=== PATIENT | female | born 1955 | race Caucasian/White ===

== ENCOUNTER 2021-02-15 13:10 | Emergency (ER) | payer OTHER ==
[~2021-02-15] VITALS: Ht 175.3 cm; Wt 51.8 kg
[2021-02-15 13:50] VITALS: BP 127/50
[2021-02-15 15:36] LABS: BILIRUBIN,URINE NEGATIVE (NEG); CLARITY,URINE CLEAR; COLOR,URINE YELLOW; NITRITE,URINE NEGATIVE (NEG); PH,URINE 6.5 (<5.0-8.0); PROTEIN,URINE NEGATIVE (NEG-TRACE); UROBILINOGEN,URINE 0.2 mg/dL (0.2 mg/dL)
--- NOTE | 2021-02-15 16:02 | PHYS DOC ---
Past Medical History Past Medical History: Other Additional Past Medical Histor: BREAST CANCER (GISELLA CEE PLAYGROUND EQUIPMENT ERECTOR) Past Surgical History: Appendectomy, Cholecystectomy, Other Additional Past Surgical Histo: MASTECTOMY (GISELLA CEE PLAYGROUND [employer]IPMENT E[employer]OR) Smoking Status: Never Smoker Alcohol Use: None (GISELLA CEE APRN) General Adult EDM: Chief Complaint: RIB PAIN HPI: HPI: Patient is a 65 year old female who presents with states around 8 weeks she was stretching and felt a pop in her right rib cage. States ever since then she she has had this constant gnawing pain or like something is stabbing her. Nothing makes it worse but if she lays on that side and makes it better. She denies chest pain, shortness of air, dizziness, headache, numbness or tingling, focal w eakness, vision changes. She denies any other injury. She has a history of breast cancer, appendectomy, mastectomy, cholesectomy. (GISELLA CEE PLAYGROUND EQUIPMENT ERECTOR) Review of Systems: Review of Systems: Constitutional: Denies fever or chills. [] Eyes: Denies change in visual acuity. [] HENT: Denies nasal congestion or sore throat. [] Respiratory: Denies cough or shortness of breath. [] Cardiovascular: Denies chest pain or edema. [] GI: Denies abdominal pain, nausea, vomiting, bloody stools or diarrhea. [] : Denies dysuria. [] Musculoskeletal: Denies back pain or joint pain. + Right rib pain [] Integument: Denies rash. [] Neurologic: Denies headache, focal weakness or sensory changes. [] Endocrine: Denies polyuria or polydipsia. [] Lymphatic: Denies swollen glands. [] Psychiatric: Denies depression or anxiety. [] (GISELLA CEE PLAYGROUND [employer]IPMENT E[employer]OR) Heart Score: C/O Chest Pain: No Risk Factors: Risk Factors: DM, Current or recent (<one month) smoker, HTN, HLP, family history of CAD, obesity. Risk Scores: Score 0 - 3: 2.5% MACE over next 6 weeks - Discharge Home Score 4 - 6: 20.3% MACE over next 6 weeks - Admit for Clinical Observation Score 7 - 10: 72.7% MACE over next 6 weeks - Early Invasive Strategies (GISELLA CEE APRN) Allergies: Allergies: Allergies Coded Allergies Type Severity Reaction Last Updated Verified No Known Drug Allergies 02/15/21 No (GISELLA CEE APRN) Physical Exam: PE: Constitutional: Well developed, well nourished, no acute distress, non-toxic appearance. [] HENT: Normocephalic, atraumatic, bilateral external ears normal, oropharynx moist, no oral exudates, nose normal. [] Eyes: PERRLA, EOMI, conjunctiva normal, no discharge. [] Neck: Normal range of motion, no tenderness, supple, no stridor. [] Cardiovascular:Heart rate regular rhythm, no murmur [] Lungs & Thorax: Bilateral breath sounds clear to auscultation [] Abdomen: Bowel sounds normal, soft, no tenderness, no masses, no pulsatile masses. [] Skin: Warm, dry, no erythema, no rash. [] Back: No tenderness, no CVA tenderness. [] Extremities: No tenderness, no cyanosis, no clubbing, ROM intact, no edema. [] Neurologic: Alert and oriented X 3, normal motor function, normal sensory function, no focal deficits noted. [] Psychologic: Affect normal, judgement normal, mood normal. Normal physical exam [] (GISELLA CEE APRN) Current Patient Data: Vital Signs: Vital Signs Date Time Temp Pulse Resp B/P (MAP) Pulse Ox O2 Delivery O2 Flow Rate FiO2 02/15/21 13:50 97.8 76 18 127/50 (75) 97 Room Air 97.8 (GISELLA CEE APRN) EKG: EK and read by Dr. Ortiz as sinus rhythm and no STEMI (GISELLA CEE APRN) Radiology/Procedures: Radiology/Procedures: [] Impression: [facility] [address] [place], [place] [id number] IMAGING REPORT Signed PATIENT: WILLIAM EPPS ACCOUNT: [id number] : 1955 LOCATION: ER AGE: 65 SEX: F EXAM STATUS: REG ER ORD. PHYSICIAN: GISELLA CEE APRN REASON: FELT A POP PROCEDURE: RIBS RIGHT AND PA CHEST Right RIBS including PA chest 02/15/2021. Reason for exam: Pain after injury. Views of the right ribs show no fracture or other abnormality. PA view of the chest demonstrates no infiltrate or effusion. Heart size is normal. There is evidence of prior left mastectomy. IMPRESSION: No apparent right rib abnormality. Electronically signed by: Nely Dennis Jr., MD (02/15/2021 4:11 PM) [id number] DICTATED and SIGNED BY: NELY DENNIS Jr, MD DATE: 02/15/21 [id number] (GISELLA CEE APRN) Course & Med Decision Making: Course & Med Decision Making Pertinent Labs and Imaging studies reviewed. (See chart for details) See HPI. Alert and oriented x4. Ambulatory with a steady gait. Speaks in full clear sentences. Vital signs are within normal limits. Lungs are clear to auscultate in all lobes. Abdomen is soft and nontender. She is not tender over the right ribs, there is no crepitus, there is no subcutaneous emphysema and no deformity is felt. There is no bruising or swelling. [] (GISELLA CEE APRN) Dragon Disclaimer: Dragon Disclaimer: This electronic medical record was generated, in whole or in part, using a voice recognition dictation system. (GISELLA CEE APRN) Departure Departure Impression: Primary Impression: Rib pain on right side Additional Impression: UTI (urinary tract infection) Qualified Codes: N39.0 - Urinary tract infection, site not specified Disposition: HOME / SELF CARE / HOMELESS Condition: STABLE Referrals: NO PCP (PCP) Patient Instructions: Urinary Tract Infection Additional Instructions: Follow-up with primary care physician. If your symptoms worsen or you begin having chest pain and shortness of breath any return to the emergency room. Take ibuprofen or Tylenol and/or use a heating pad to help with your pain. Scripts Cephalexin (CEPHALEXIN) 500 Mg Capsule 1 CAP PO BID, #20 CAP Prov: GISELLA CEE APRN 02/15/21 Attending Signature Attending Signature I have participated in the care of this patient and I have reviewed and agree with all pertinent clinical information above including history, exam, and recommendations. (ISAI ORTIZ DO) GISELLA CEE APRN February 15, 2021 16:02 ISAI ORTIZ DO February 17, 2021 17:45
[2021-02-15 16:10] LABS: BACTERIA,URINE FEW /HPF (0-FEW)
[2021-02-15 16:11] LABS: RBC,URINE 0 /HPF (0-2)
--- NOTE | 2021-02-15 16:14 | RAD ---
Right RIBS including PA chest 02/15/2021. Reason for exam: Pain after injury. Views of the right ribs show no fracture or other abnormality. PA view of the chest demonstrates no infiltrate or effusion. Heart size is normal. There is evidence of prior left mastectomy. IMPRESSION: No apparent right rib abnormality. Electronically signed by: Grzegorz Dennis Jr., MD (02/15/2021 4:11 PM) [id number]
[2021-02-15] MEDS ORDERED: CEPH500C PO (16:40)
--- NOTE | 2021-02-15 19:49 | EKG ---
[facility] [address] [place] [address] Test Date: 2021-02-15 Test Time: 16:31:52 Pat Name: WILLIAM EPPS Department: Room: Gender: F Brazer Resistance: : 1955 Requested By: GISELLA CEE Order Number: [id number] Reading MD: Measurements Intervals [place] Rate: 69 P: 76 GA: 158 QRS: 80 QRSD: 76 T: 65 QT: 382 QTc: 411 Interpretive Statements SINUS RHYTHM NORMAL ECG RI6.01 No previous ECG available for comparison
== END 2021-02-15 16:46 | disposition home or self-care (01) ==
LOC: ER 13:10
DX: R07.81 Pleurodynia (principal); N39.0 Urinary tract infection, site not specified; Z90.13 Acquired absence of bilateral breasts and nipples
CPT/HCPCS: 71101; 81001; 87086; 93005; 99285-25

== ENCOUNTER 2021-06-28 16:16 | Emergency (ER) | payer OTHER ==
[~2021-06-28] VITALS: Ht 175.3 cm; Wt 56.8 kg
[~2021-06-28 16:16] MED LIST: CEPH500C PO
[2021-06-28 17:26] VITALS: BP 153/63
[2021-06-28] MEDS ORDERED: HYDR28.423 TP (18:37)
[2021-06-28] MEDS ORDERED: DIPH28.33 TP (18:37)
--- NOTE | 2021-06-28 18:39 | PHYS DOC ---
Past Medical History Past Medical History: Other Additional Past Medical Histor: BREAST CANCER (MEGAN POWELL) Past Surgical History: Appendectomy, Cholecystectomy, Other Additional Past Surgical Histo: MASTECTOMY (MEGAN POWELL) Smoking Status: Never Smoker Alcohol Use: None (MEGAN POWELL) General Adult EDM: Chief Complaint: SKIN PROBLEM Problems: (1) Rash (MEGAN POWELL) HPI: HPI: Patient is a 65 year old female who presents with a itchy rash on her back and left shoulder. Patient states it appeared 1 month ago without change since onset. Patient states it is worse with sweat. She reports she scratches it with a back bessemer converter blower at home. Patient denies pain, exposure, trauma. Patient states she used her daughter's prescription antifungal cream for a week, but it did not help. Patient states she does not currently have a primary care provider, but plans to be set up with Dr. Lyn, who her granddaughter sees. Patient has no other complaints at this time. (MEGAN POWELL) Review of Systems: Review of Systems: Constitutional: Denies fever or chills. Respiratory: Denies cough or shortness of breath. Cardiovascular: Denies chest pain or edema. Musculoskeletal: Denies back pain or joint pain. Integument: See HPI Neurologic: Denies headache, focal weakness or sensory changes. (MEGAN POWELL) Heart Score: C/O Chest Pain: No (MEGAN POWELL) Allergies: Allergies: Allergies Coded Allergies Type Severity Reaction Last Updated Verified No Known Drug Allergies 02/15/21 No (MEGAN POWELL) Physical Exam: PE: Constitutional: Well developed, well nourished, no acute distress, non-toxic appearance. Cardiovascular:Heart rate regular rhythm, no murmur Lungs & Thorax: Bilateral breath sounds clear to auscultation Skin: There is a 2.5 inch x 0.5 inch raised, pink lesion to the left side mid back without any drainage, warmth. There is an additional similar 0.5 x 0.5 inch lesion to the low neck on the left side. Skin is warm, dry. Back: No tenderness, no CVA tenderness. (MEGAN POWELL) Current Patient Data: Vital Signs: Vital Signs Date Time Temp Pulse Resp B/P (MAP) Pulse Ox O2 Delivery O2 Flow Rate FiO2 06/28/21 17:26 98.2 97 18 153/63 (93) 100 Room Air 98.2 (MEGAN POWELL) Course & Med Decision Making: Course & Med Decision Making Pertinent Labs and Imaging studies reviewed. (See chart for details) Patient's rash shows no signs of infection and is causing her no pain. The urticaria's discomfort may be relieved by topical hydrocortisone and/or topical antihistamines. This was discussed with the patient and she is agreeable. She plans to set up primary care early next week, whom she can follow-up with if her symptoms do not resolve. (MEGAN POWELL) Course & Med Decision Making I have reviewed and was available for consultation in the emergency department for this patient that was seen by midlevel provider. Agree with plan. Dean Billingsley DO (DEAN BILLINGSLEY DO) Nava Disclaimer: Nava Disclaimer: This electronic medical record was generated, in whole or in part, using a voice recognition dictation system. (MEGAN POWELL) Departure Departure Disposition: 01 HOME / SELF CARE / HOMELESS Condition: STABLE Referrals: NO PCP (PCP) Patient Instructions: Rash Additional Instructions: Please set up appointment with your new primary care provider for follow-up. If you develop a fever or if the wound shows signs of infection (redness, discharge), please return to emergency department. Scripts Diphenhydramine Hcl/Zinc Acet (BENADRYL ITCH STOPPING CRM) 28.3 Gm Cream..g. 1 BRITTANY TP TID, #1 EA 0 Refills Apply topically 3 times per day Prov: MEGAN POWELL 06/28/21 Hydrocortisone/Aloe Vera (HYDROCORTISONE PLUS 1% CREAM) 28.4 Gm Cream..g. 28.4 GM TP TID, #1 EACH Apply ointment topically 3 times per day. Prov: MEGAN POWELL 06/28/21 MEGAN POWELL Jun 28, 2021 18:39 DEAN BILLINGSLEY DO Jun 28, 2021 19:07
== END 2021-06-28 18:54 | disposition home or self-care (01) ==
LOC: ER 16:16
DX: R21 Rash and other nonspecific skin eruption (principal)
CPT/HCPCS: 99283

== ENCOUNTER 2022-02-12 19:16 | Emergency (ER) | payer OTHER ==
[~2022-02-12] VITALS: Ht 175.3 cm; Wt 59.0 kg
[~2022-02-12 19:16] MED LIST changes: +DIPH28.33 TP; +HYDR28.423 TP
[2022-02-12 19:21] VITALS: BP 155/70
[2022-02-12] MEDS ORDERED: LIDOCAINE (700MG/PATCH) PATCH. TD ONE (20:00)
[2022-02-12] MEDS ORDERED: KETOROLAC 30 MG/ML VIAL. IM ONE (20:00)
[2022-02-12] MEDS ORDERED: NAPR-683 PO (21:01)
[2022-02-12] MEDS ORDERED: CYCL5TAB PO (21:01)
--- NOTE | 2022-02-12 21:01 | PHYS DOC ---
Past Medical History Past Medical History: Other Additional Past Medical Histor: BREAST CANCER Past Surgical History: Appendectomy, Cholecystectomy, Other Additional Past Surgical Histo: MASTECTOMY Smoking Status: Never Smoker Alcohol Use: None General Adult EDM: Chief Complaint: NECK INJURY HPI: HPI: Patient is a 66 year old female presents with right-sided shoulder pain/neck pain that started when she woke up this morning. States that she might of slept wrong. Denies any trauma or injury. Denies any numbness or tingling. Review of Systems: Review of Systems: Constitutional: Denies fever or chills. [] Eyes: Denies change in visual acuity. [] HENT: Denies nasal congestion or sore throat. [] Respiratory: Denies cough or shortness of breath. [] Cardiovascular: Denies chest pain or edema. [] GI: Denies abdominal pain, nausea, vomiting, bloody stools or diarrhea. [] : Denies dysuria. [] Musculoskeletal: Neck/shoulder pain denies back pain or joint pain. [] Integument: Denies rash. [] Neurologic: Denies headache, focal weakness or sensory changes. [] Endocrine: Denies polyuria or polydipsia. [] Lymphatic: Denies swollen glands. [] Psychiatric: Denies depression or anxiety. [] Heart Score: Risk Factors: Risk Factors: DM, Current or recent (<one month) smoker, HTN, HLP, family history of CAD, obesity. Risk Scores: Score 0 - 3: 2.5% MACE over next 6 weeks - Discharge Home Score 4 - 6: 20.3% MACE over next 6 weeks - Admit for Clinical Observation Score 7 - 10: 72.7% MACE over next 6 weeks - Early Invasive Strategies Current Medications: Current Medications Medications (Trade) Dose Ordered Sig/[facility] Start Time Stop Time Status Last Admin Dose Admin Ketorolac Tromethamine (Toradol 30mg Vial) 30 mg 1X ONCE 02/12/22 20:00 02/12/22 20:04 DC 02/12/22 20:08 30 MG Lidocaine (Lidoderm) 1 patch 1X ONCE 02/12/22 20:00 02/12/22 20:04 DC 02/12/22 20:08 1 PATCH Allergies: Allergies: Allergies Coded Allergies Type Severity Reaction Last Updated Verified No Known Drug Allergies 02/15/21 No Physical Exam: PE: Constitutional: Well developed, well nourished, no acute distress, non-toxic appearance. [] HENT: Normocephalic, atraumatic, bilateral external ears normal, oropharynx moist, no oral exudates, nose normal. [] Eyes: PERRLA, EOMI, conjunctiva normal, no discharge. [] Neck: Normal range of motion, no tenderness, supple, no stridor no nuchal rigidity. [] Cardiovascular:Heart rate regular rhythm, no murmur [] Lungs & Thorax: Bilateral breath sounds clear to auscultation [] Abdomen: Bowel sounds normal, soft, no tenderness, no masses, no pulsatile masses. [] Skin: Warm, dry, no erythema, no rash. [] Back: No tenderness, no CVA tenderness. [] Extremities: Spasm of the right trapezius muscle tenderness and reproducible pain with neck rotation. No tenderness, no cyanosis, no clubbing, ROM intact, no edema. [] Neurologic: Alert and oriented X 3, normal motor function, normal sensory function, no focal deficits noted. [] Psychologic: Affect normal, judgement normal, mood normal. [] Current Patient Data: Vital Signs: Vital Signs Date Time Temp Pulse Resp B/P (MAP) Pulse Ox O2 Delivery O2 Flow Rate FiO2 02/12/22 19:21 98.1 83 20 155/70 (98) 94 Room Air 98.1 EKG: EKG: [] Radiology/Procedures: Radiology/Procedures: [] Course & Med Decision Making: Course & Med Decision Making Pertinent Labs and Imaging studies reviewed. (See chart for details) [] Patient was reevaluated states that she feels much better. Patient does not display any signs of cord compression. Dragon Disclaimer: [email or web address] Disclaimer: This electronic medical record was generated, in whole or in part, using a voice recognition dictation system. Departure Departure Impression: Primary Impression: Cervical muscle strain Disposition: 02 SHORT TERM HOSPITAL Condition: STABLE Referrals: NO PCP (PCP) Patient Instructions: Soft Tissue Injury of the Neck, [id number] Scripts Naproxen (NAPROSYN) 500 Mg Tablet 1 TAB PO BID for pain, #20 TAB Prov: GINETTE PUENTE DO 02/12/22 Cyclobenzaprine Hcl (CYCLOBENZAPRINE HCL) 5 Mg Tablet 5 MG PO TID for 7 Days, #21 TAB Prov: GINETTE PUENTE DO 02/12/22 GINETTE PUENTE DO Feb 12, 2022 21:01
--- NOTE | 2022-02-12 21:04 | RAD ---
Examination: 3 radiographs of the cervical spine.. History: Neck pain. Comparison: None. Findings: Cervical alignment is unremarkable. Degenerative endplate remodeling and anterior predominant osteoph ytosis and disc space narrowing. Mild to moderate uncovertebral and facet arthrosis. Predental space is maintained. Prevertebral soft tissues are unremarkable. Odontoid is intact and atlantoaxial latera l masses are symmetric. Impression: 1. No acute osseous injury of the cervical spine. 2. Mild to moderate multilevel degenerative changes. Electronically signed by: Zenon Avendaño DO (02/12/2022 9:01 PM) [facility]
--- NOTE | 2022-02-12 22:39 | PHYS DOC ---
Past Medical History Past Medical History: Other Additional Past Medical Histor: BREAST CANCER Past Surgical History: Appendectomy, Cholecystectomy, Other Additional Past Surgical Histo: MASTECTOMY Smoking Status: Never Smoker Alcohol Use: None General Adult EDM: Chief Complaint: NECK INJURY HPI: HPI: Patient is a 66 year old [f__sex] who presents with [] Review of Systems: Review of Systems: Constitutional: Denies fever or chills. [] Eyes: Denies change in visual acuity. [] HENT: Denies nasal congestion or sore throat. [] Respiratory: Denies cough or shortness of breath. [] Cardiovascular: Denies chest pain or edema. [] GI: Denies abdominal pain, nausea, vomiting, bloody stools or diarrhea. [] : Denies dysuria. [] Musculoskeletal: Denies back pain or joint pain. [] Integument: Denies rash. [] Neurologic: Denies headache, focal weakness or sensory changes. [] Endocrine: Denies polyuria or polydipsia. [] Lymphatic: Denies swollen glands. [] Psychiatric: Denies depression or anxiety. [] Heart Score: C/O Chest Pain: No Risk Factors: Risk Factors: DM, Current or recent (<one month) smoker, HTN, HLP, family history of CAD, obesity. Risk Scores: Score 0 - 3: 2.5% MACE over next 6 weeks - Discharge Home Score 4 - 6: 20.3% MACE over next 6 weeks - Admit for Clinical Observation Score 7 - 10: 72.7% MACE over next 6 weeks - Early Invasive Strategies Current Medications: Current Medications Medications (Trade) Dose Ordered Sig/[facility] Start Time Stop Time Status Last Admin Dose Admin Ketorolac Tromethamine (Toradol 30mg Vial) 30 mg 1X ONCE 02/12/22 20:00 02/12/22 20:04 DC 02/12/22 20:08 30 MG Lidocaine (Lidoderm) 1 patch 1X ONCE 02/12/22 20:00 02/12/22 20:04 DC 02/12/22 20:08 1 PATCH Allergies: Allergies: Allergies Coded Allergies Type Severity Reaction Last Updated Verified No Known Drug Allergies 02/15/21 No Physical Exam: PE: Constitutional: Well developed, well nourished, no acute distress, non-toxic appearance. [] HENT: Normocephalic, atraumatic, bilateral external ears normal, oropharynx moist, no oral exudates, nose normal. [] Eyes: PERRLA, EOMI, conjunctiva normal, no discharge. [] Neck: Normal range of motion, no tenderness, supple, no stridor. [] Cardiovascular:Heart rate regular rhythm, no murmur [] Lungs & Thorax: Bilateral breath sounds clear to auscultation [] Abdomen: Bowel sounds normal, soft, no tenderness, no masses, no pulsatile masses. [] Skin: Warm, dry, no erythema, no rash. [] Back: No tenderness, no CVA tenderness. [] Extremities: No tenderness, no cyanosis, no clubbing, ROM intact, no edema. [] Neurologic: Alert and oriented X 3, normal motor function, normal sensory function, no focal deficits noted. [] Psychologic: Affect normal, judgement normal, mood normal. [] Current Patient Data: Vital Signs: Vital Signs Date Time Temp Pulse Resp B/P (MAP) Pulse Ox O2 Delivery O2 Flow Rate FiO2 02/12/22 19:21 98.1 83 20 155/70 (98) 94 Room Air 98.1 EKG: EKG: [] Radiology/Procedures: Radiology/Procedures: [] Course & Med Decision Making: Course & Med Decision Making Pertinent Labs and Imaging studies reviewed. (See chart for details) [] Dragon Disclaimer: Nava Disclaimer: This electronic medical record was generated, in whole or in part, using a voice recognition dictation system. Departure Departure Referrals: NO PCP (PCP) GINETTE PUENTE DO Feb 12, 2022 22:39
== END 2022-02-12 21:31 | disposition short-term general hospital (02) ==
LOC: ER 19:16
DX: S16.1XXA Strain of muscle, fascia and tendon at neck level, initial encounter (principal); M25.511 Pain in right shoulder; X50.9XXA Other and unspecified overexertion or strenuous movements or postures, initial encounter; Y93.89 Activity, other specified; Y92.89 Other specified places as the place of occurrence of the external cause; Y99.8 Other external cause status
CPT/HCPCS: 72040; 96372; 99285; J1885